=== PATIENT | female | born 1995 | race Caucasian/White ===

== ENCOUNTER 2016-08-05 10:51 | Emergency (ER) | payer MEDICAID ==
--- NOTE | 2016-08-05 11:28 | ED PDOC ---
Arrival/HPI - General Chief Complaint: Flu-like Symptoms Time Seen by Provider: 08/05/16 11:20 Historian: Patient - History of Present Illness Narrative History of Present Illness (Text): 08/05/16 11:25 21 y/o female, no pmh, nkda, c/o nasal congestion/coughing/fever x 2 days with no recent traveling. Nasal congestion with the coughing, associated with the fever 101F at home, no abdominal pain or pelvic pain, no urinary symptoms, no night sweat, no dizziness, no change in vision, no palpitation, no other medical or psychological complaints. Past Medical History - Provider Review Nursing Documentation Reviewed: Yes - Psychiatric Hx Substance Use: No - Surgical History Hx Appendectomy: Yes - Anesthesia Hx Anesthesia: Yes Hx Anesthesia Reactions: No Hx Malignant Hyperthermia: No Family/Social History - Physician Review Nursing Documentation Reviewed: Yes Family/Social History: Unknown Family HX Smoking Status: Never Smoked Hx Alcohol Use: No Hx Substance Use: No Allergies/Home Meds Allergies/Adverse Reactions: Allergies No Known Allergies Allergy (Verified 08/05/16 11:15) Review of Systems - Review of Systems Constitutional: Fevers. absent: Fatigue ENT: Rhinorrhea, Sinus Congestion. absent: Hearing Changes, Sore Throat Respiratory: Cough, Sputum. absent: SOB, Wheezing Cardiovascular: absent: Chest Pain Gastrointestinal: absent: Abdominal Pain, Nausea, Vomiting Musculoskeletal: absent: Arthralgias, Back Pain, Neck Pain, Joint Swelling, Myalgias Skin: absent: Rash, Pruritis, Skin Lesions Neurological: absent: Headache, Dizziness, Speech Changes Physical Exam Vital Signs Reviewed: Yes Vital Signs Temp Pulse Resp BP Pulse Ox 08/05/16 12:09 100.3 F H 08/05/16 10:52 100.3 F H 118 H 18 113/65 100 Temperature: Afebrile Blood Pressure: Normal Pulse: Tachycardic Respiratory Rate: Normal Appearance: Positive for: Well-Appearing, Non-Toxic, Uncomfortable Pain Distress: None Mental Status: Positive for: Alert and Oriented X 3 - Systems Exam Head: Present: Atraumatic, Normocephalic, Other (+ttp on the rt. maxillary sinus region. ) Pupils: Present: PERRL Extroacular Muscles: Present: EOMI Conjunctiva: Present: Normal Ears: Present: NORMAL TM, Normal Canal. No: Erythema Mouth: Present: Moist Mucous Membranes Pharnyx: No: ERYTHEMA, EXUDATE, TONSILS ENLARGED Nose (External): Present: Atraumatic. No: Abrasion, Contusion, Laceration Nose (Internal): Present: Normal Inspection, No Active Bleeding, Rhinorrhea. No : Purulent Mucous, Septal Deviation, Septal Hematoma, Epistaxis Neck: Present: Normal Range of Motion, Trachea Midline. No: Meningeal Signs, MIDLINE TENDERNESS, Paraspinal Tenderness, Lymphadenopathy Respiratory/Chest: Present: Clear to Auscultation, Good Air Exchange. No: Respiratory Distress, Accessory Muscle Use, Wheezes, Decreased Breath Sounds, Rales, Retracting, Rhonchi, Tachypneic Cardiovascular: Present: Regular Rate and Rhythm, Normal S1, S2. No: Murmurs Abdomen: Present: Normal Bowel Sounds. No: Tenderness, Distention, Peritoneal Signs Back: Present: Normal Inspection. No: CVA Tenderness, Midline Tenderness Upper Extremity: Present: Normal Inspection. No: Cyanosis, Edema Lower Extremity: Present: Normal Inspection. No: Edema Neurological: Present: GCS=15, Speech Normal, Motor Func Grossly Intact, Gait Normal, Memory Normal Skin: Present: Warm, Dry, Normal Color. No: Rashes Psychiatric: Present: Alert, Oriented x 3, Normal Insight, Normal Concentration Medical Decision Making ED Course and Treatment: 08/05/16 11:27 -tylenol and rapid flu -chest x-ray 08/05/16 12:17 -Urine hcg negative -Influenza negative -chest x-ray show possible rt. lower lobe consolidation, will cover with the levaquin which I discussed with the patient about the adverse reaction including the possible achilles tendon rupture with the benefits of this medication explained vs. other medications bacterial coverage, pt. willing to take the risk and wants levaquin. -Discharge home with levaquin, flonase, claritin d24, promethazine dm, motrin, stay hydrated, bed rest, follow up with your own pmd within 2 days, return to the ER for any new or worsening signs or symptoms. - Lab Interpretations Lab Results: Lab Results 08/05/16 11:18: Influenza Typ A,B (EIA) Negative for flu a/b I have reviewed the lab results: Yes Interpretation: Abnormal lab values - RAD Interpretation Radiology Orders: 08/05/16 11:20 CHEST TWO VIEWS (PA/LAT) [RAD] Stat - Medication Orders Current Medication Orders: Discontinued Medications Acetaminophen (Tylenol 325mg Tab) 650 mg PO STAT STA Stop: 08/05/16 11:21 Last Admin: 08/05/16 12:09 Dose: 650 MG MAR Pain/Vitals Document 08/05/16 12:09 EQ (Rec: 08/05/16 12:09 EQ [id number]) Vitals Temperature (97.6 F-99.6 F) 100.3 F Temperature Source Oral Ibuprofen (Motrin Tab) 600 mg PO STAT STA Stop: 08/05/16 11:29 Last Admin: 08/05/16 12:09 Dose: 600 MG - PA / DETECTIVE CHIEF / Resident Statement / has reviewed & agrees with the documentation as recorded. Disposition/Present on Arrival - Present on Arrival Any Indicators Present on Arrival: No History of DVT/PE: No History of Uncontrolled Diabetes: No Urinary Catheter: No History of Decub. Ulcer: No History Surgical Site Infection Following: None - Disposition Have Diagnosis and Disposition been Completed?: Yes Diagnosis: Sinusitis, Pneumonia Disposition: HOME/ ROUTINE Disposition Time: 11:28 Patient Plan: Discharge Condition: GOOD Additional Instructions: Discharge home with levaquin, flonase, claritin d24, promethazine dm, motrin, stay hydrated, bed rest, follow up with your own pmd within 2 days, return to the ER for any new or worsening signs or symptoms. Prescriptions: Loratadine/Pseudoephedrine [Claritin-D 24 Hour Tablet] 1 each PO DAILY #7 tab.er.24h Fluticasone Nasal [Flonase] 1 spr NS DAILY #1 bot Promethazine DM [Phenergan DM Oral Syrup] 5 ml PO QID PRN #150 ml PRN Reason: Other Acetaminophen [Tylenol 325mg tab] 2 tab PO QID PRN #30 tab PRN Reason: Other Referrals: Paresh Guzman DO [Staff Provider] - Follow up with primary [facility] at [facility] [place] [Outside] - Follow up with primary Forms: WORK NOTE
[2016-08-05 12:28] VITALS: BP 126/72; PULSE 96; RESP 17; TEMP 99.8; O2SAT 99
--- NOTE | 2016-08-05 12:40 | RAD ---
HISTORY: cough/fever COMPARISON: None available TECHNIQUE: Chest PA and lateral FINDINGS: LUNGS: Minimal interstitial prominence and peribronchiolar cuffing centrally. No focal consolidation. Please note that chest x-ray has limited sensitivity for the detection of pulmonary masses. PLEURA: No significant pleural effusion identified. No definite pneumothorax . CARDIOVASCULAR: The cardiomediastinal silhouette appears within normal limits of size. OSSEOUS STRUCTURES: No acute osseous abnormality identified. VISUALIZED UPPER ABDOMEN: Unremarkable. OTHER FINDINGS: None. IMPRESSION: Findings consistent with mild reactive or inflammatory airway disease.
== END 2016-08-05 12:50 | disposition home or self-care (01) ==
LOC: ED 10:51
DX: J18.9 Pneumonia, unspecified organism (principal); J32.9 Chronic sinusitis, unspecified

== ENCOUNTER 2017-01-01 19:01 | Emergency (ER) | payer MEDICAID ==
[2017-01-01 19:15] VITALS: BMI 28.8
[2017-01-01 19:17] VITALS: RESP 18; TEMP 98.5
[2017-01-01] MEDS ORDERED: Sodium Chloride 0.9% 1,000 ML IV STA (19:29)
--- NOTE | 2017-01-01 19:33 | ED PDOC ---
Arrival/HPI - General Chief Complaint: ENT Problem Time Seen by Provider: 01/01/17 19:22 Historian: Patient - History of Present Illness Narrative History of Present Illness (Text): 01/01/17 19:30 21 y/o female, no significant pmh, nkda, c/o dizzy spell with ear ringing x 2 days with no fall or trauma. Pt. stated that she has been having rt. ear ringing sensation on and off x 2 days, occasionally feeling the entire room is spinning, no nausea or vomiting, no change in vision, no fever or chills, no night sweat, no rash, no numbness or tingling, no other medical or psychological complaints. Past Medical History - Provider Review Nursing Documentation Reviewed: Yes - Infectious Disease Hx of Infectious Diseases: None - Psychiatric Hx Substance Use: No - Surgical History Hx Appendectomy: Yes - Anesthesia Hx Anesthesia: Yes Hx Anesthesia Reactions: No Hx Malignant Hyperthermia: No Family/Social History - Physician Review Nursing Documentation Reviewed: Yes Family/Social History: Unknown Family HX Smoking Status: Never Smoked Hx Alcohol Use: No Hx Substance Use: No Allergies/Home Meds Allergies/Adverse Reactions: Allergies No Known Allergies Allergy (Verified 08/05/16 11:15) Review of Systems - Review of Systems Constitutional: absent: Fatigue, Fevers Eyes: absent: Vision Changes ENT: Tinnitus. absent: Hearing Changes, Sore Throat, Rhinorrhea, Epistaxis Respiratory: absent: SOB, Cough Gastrointestinal: absent: Abdominal Pain, Nausea, Vomiting Skin: absent: Rash, Pruritis Neurological: Dizziness. absent: Headache, Focal Weakness, Gait Changes, Speech Changes, Facial Droop Physical Exam Vital Signs Reviewed: Yes Vital Signs Temp Pulse Resp BP Pulse Ox 01/01/17 19:17 98.5 F 67 18 109/71 100 Temperature: Afebrile Blood Pressure: Normal Pulse: Regular Respiratory Rate: Normal Appearance: Positive for: Well-Appearing, Non-Toxic, Comfortable Pain Distress: None Mental Status: Positive for: Alert and Oriented X 3 - Systems Exam Head: Present: Atraumatic, Normocephalic Pupils: Present: PERRL Extroacular Muscles: Present: EOMI Conjunctiva: Present: Normal Ears: Present: NORMAL TM, Normal Canal. No: Erythema, TM Bulging, Fluid, TM Perf Mouth: Present: Moist Mucous Membranes Pharnyx: No: ERYTHEMA, EXUDATE, TONSILS ENLARGED, Uvular Deviation, Muffled/ Hoarse Voice Nose (Internal): Present: Normal Inspection, No Active Bleeding. No: Rhinorrhea Neck: Present: Normal Range of Motion Respiratory/Chest: Present: Clear to Auscultation, Good Air Exchange. No: Respiratory Distress, Accessory Muscle Use Cardiovascular: Present: Regular Rate and Rhythm, Normal S1, S2. No: Murmurs Abdomen: Present: Normal Bowel Sounds. No: Tenderness, Distention, Peritoneal Signs, Rebound, Guarding Back: Present: Normal Inspection Upper Extremity: Present: Normal Inspection. No: Cyanosis, Edema Lower Extremity: Present: Normal Inspection. No: Edema Neurological: Present: GCS=15, CN II-XII Intact, Speech Normal, Motor Func Grossly Intact, Gait Normal, Memory Normal, Other (negative HINTS, +dixhall pike test, normal finger to nose test, normal heel to fletcher test. ) Skin: Present: Warm, Dry, Normal Color. No: Rashes Psychiatric: Present: Alert, Oriented x 3, Normal Insight, Normal Concentration Medical Decision Making ED Course and Treatment: 01/01/17 19:33 -labs/ua -IVF/meclizine -no emergent indication of the CT head -Observe and reassess 01/01/17 20:49 -Urine hcg negative. -Labs are non-significant -UA show no UTI -Pt. feels completely relief, asymptomatic, no focal neurological deficits, will discharge home. -Discharge home with meclizine, stay hydrated, bed rest, follow up with your own pmd and ENT within 2 days, return to the ER for any new or worsening signs or symptoms. - Lab Interpretations Lab Results: 01/01/17 20:00 01/01/17 20:00 Lab Results 01/01/17 20:00: WBC 8.0, RBC 4.11, Hgb 12.2, Hct 36.1, MCV 87.8, MCH 29.7, MCHC 33.8, RDW 12.3, Plt Count 286, MPV 9.6, Gran % 59.6, Lymph % (Auto) 34.3, [place] % (Auto) 3.9, Eos % (Auto) 2.1, Baso % (Auto) 0.1, Gran # 4.76, Lymph # 2.7, [place] # 0.3, Eos # 0.2, Baso # 0.01 01/01/17 20:00: Sodium 139, Potassium 3.7, Chloride 101, Carbon Dioxide 27, Anion Gap 15, BUN 10, Creatinine 0.6, Est GFR ( Amer) > 60, Est GFR (Non- Af Amer) > 60, Random Glucose 94, Calcium 9.1, Total Bilirubin 0.4, AST 30, ALT 35, Alkaline Phosphatase 48, Total Protein 7.4, Albumin 4.4, Globulin 3.0, Albumin/Globulin Ratio 1.5 01/01/17 19:40: Urine Color Yellow, Urine Appearance Clear, Urine pH 6.0, Ur Specific [place] 1.020, Urine Protein Negative, Urine Glucose (UA) Negative, Urine Ketones Negative, Urine Blood Small H, Urine Nitrate Negative, Urine Bilirubin Negative, Urine Urobilinogen 0.2, Ur Leukocyte Esterase Negative, Urine RBC 0 - 2, Urine WBC 1 - 3, Ur Epithelial Cells 1 - 3, Urine Bacteria Few I have reviewed the lab results: Yes Interpretation: No clinic. lab abnormalty - Medication Orders Current Medication Orders: Discontinued Medications Sodium Chloride (Sodium Chloride 0.9%) 1,000 mls @ 999 mls/hr IV .Q1H1M STA Stop: 01/01/17 20:29 Last Admin: 01/01/17 19:56 Dose: 999 mls/hr Meclizine HCl (Antivert) 50 mg PO STAT STA Stop: 01/01/17 20:25 Last Admin: 01/01/17 20:32 Dose: 50 mg - PA / WIG MAKER / Resident Statement MD/DO has reviewed & agrees with the documentation as recorded. Disposition/Present on Arrival - Present on Arrival Any Indicators Present on Arrival: No History of DVT/PE: No History of Uncontrolled Diabetes: No Urinary Catheter: No History of Decub. Ulcer: No History Surgical Site Infection Following: None - Disposition Have Diagnosis and Disposition been Completed?: Yes Diagnosis: Vertigo, Meniere disease Disposition: HOME/ ROUTINE Disposition Time: 20:51 Patient Plan: Discharge Condition: IMPROVED Additional Instructions: -Discharge home with meclizine, stay hydrated, bed rest, follow up with your own pmd and ENT within 2 days, return to the ER for any new or worsening signs or symptoms. Prescriptions: Meclizine [Antivert] 25 mg PO Q6 PRN #30 tab PRN Reason: Other Referrals: PCP,NO [Primary Care Provider] - Follow up with primary [facility] [place] - Follow up with primary Jermaine Bruno DO [Staff Provider] - Follow up with primary Christopher Ding MD [Staff Provider] - Follow up with primary Forms: [employer] (Lao), WORK NOTE
[2017-01-01 19:54] LABS: URINE BILIRUBIN NEGATIVE (NEGATIVE); URINE BLOOD SMALL (NEGATIVE); URINE GLUCOSE (UA) NEGATIVE (NEGATIVE); URINE KETONE NEGATIVE (NEGATIVE); URINE LEUKOCYTE ESTERASE NEGATIVE Leu/uL (NEGATIVE); URINE PROTEIN NEGATIVE mg/dL (<30 mg/dL); URINE UROBILINOGEN 0.2 E.U./dL (<1 E.U./dL)
[2017-01-01 19:57] LABS: URINE APPEARANCE CLEAR (CLEAR); URINE COLOR YELLOW (YELLOW)
[2017-01-01 20:05] LABS: BASO # 0.01 K/mm3 (0.0-2.0); BASO % 0.1 % (0.0-3.0); EOS # 0.2 (0.0-0.7); EOS % 2.1 % (1.5-5.0); GRAN # 4.76 (1.4-6.5); GRAN % 59.6 % (50.0-68.0); HEMATOCRIT 36.1 % (36.0-48.0); LYMPH # 2.7 (1.2-3.4); LYMPH % 34.3 % (22.0-35.0); MEAN CELL VOLUME 87.8 fl (80.0-105.0); MEAN CORPUSCULAR HEMOGLOBIN 29.7 pg (25.0-35.0); MEAN CORPUSCULAR HGB CONC 33.8 g/dl (31.0-37.0); MEAN PLATELET VOLUME 9.6 fl (7.0-11.0); MONO # 0.3 (0.1-0.6); MONO % 3.9 % (1.0-6.0); RED CELL DISTRIBUTION WIDTH 12.3 % (11.5-14.5)
[2017-01-01 20:08] LABS: URINE BACTERIA FEW (NEG); URINE RBC 0 - 2 /hpf (0-2)
[2017-01-01 20:22] LABS: ALB/GLOB RATIO 1.5 (1.1-1.8); ALKALINE PHOSPHATASE 48 U/L (38-126); ALT/SGPT 35 U/L (7-56); AST/SGOT 30 U/L (14-36); BILIRUBIN,TOTAL 0.4 mg/dL (0.2-1.3); BLOOD UREA NITROGEN 10 mg/dL (7-21); CALCIUM 9.1 mg/dL (8.4-10.5); CARBON DIOXIDE 27 mmol/L (21-33); CHLORIDE 101 mmol/L (98-107); GFR AFRICAN-AMERICAN > 60; GLUCOSE,RANDOM 94 mg/dL (70-110); POTASSIUM 3.7 mmol/L (3.6-5.0); SODIUM 139 mmol/L (132-148); TOTAL PROTEIN 7.4 g/dL (5.8-8.3)
[2017-01-01 21:17] VITALS: BP 112/62; PULSE 64; O2SAT 99
== END 2017-01-01 21:15 | disposition home or self-care (01) ==
LOC: ED 19:01
DX: R42 Dizziness and giddiness (principal); H81.01 Meniere's disease, right ear
CPT/HCPCS: 80053; 81001; 85025; 96360; 99283; J7040

== ENCOUNTER 2017-03-23 11:21 | Emergency (ER) | payer MEDICAID ==
[2017-03-23 11:34] VITALS: RESP 17; TEMP 98.4; O2SAT 100
--- NOTE | 2017-03-23 11:47 | ED PDOC ---
Arrival/HPI - General Chief Complaint: Lower Extremity Problem/Injury Time Seen by Provider: 03/23/17 11:32 Historian: Patient - History of Present Illness Narrative History of Present Illness (Text): 03/23/17 11:40 A 21 year old female, whose denies any significant past medical history, presents to the emergency department for bilateral leg cramping, which began earlier today. The patient states the pain is moderate and occasionally her feet begin to tingle. The patient denies any fever, cough, chest pain, abdominal pain, or any other complaints at this time. 03/23/17 14:12 Time/Duration: 4-6 hours Symptom Onset: Sudden Symptom Course: Unchanged Activities at Onset: Rest, Light Context: Home Past Medical History - Provider Review Nursing Documentation Reviewed: Yes - Infectious Disease Hx of Infectious Diseases: None - Psychiatric Hx Substance Use: No - Surgical History Hx Appendectomy: Yes - Anesthesia Hx Anesthesia: Yes Hx Anesthesia Reactions: No Hx Malignant Hyperthermia: No Family/Social History - Physician Review Nursing Documentation Reviewed: Yes Family/Social History: No Known Family HX Smoking Status: Never Smoked Hx Alcohol Use: No Hx Substance Use: No Allergies/Home Meds Allergies/Adverse Reactions: Allergies No Known Allergies Allergy (Verified 03/23/17 11:35) Review of Systems - Physician Review All systems were reviewed & negative as marked: Yes - Review of Systems Constitutional: absent: Fevers Respiratory: absent: Cough Cardiovascular: absent: Chest Pain Gastrointestinal: absent: Abdominal Pain Musculoskeletal: Other (bilateral leg cramping ) Physical Exam Vital Signs Reviewed: Yes Vital Signs Temp Pulse Resp BP Pulse Ox 03/23/17 13:09 98.4 F 79 17 107/59 L 100 03/23/17 11:37 98.4 F 99 H 17 134/87 100 03/23/17 11:32 98.4 F 99 H 17 134/87 100 Temperature: Afebrile Blood Pressure: Normal Pulse: Tachycardic Respiratory Rate: Normal Appearance: Positive for: Well-Appearing, Non-Toxic, Comfortable Pain Distress: None Mental Status: Positive for: Alert and Oriented X 3 - Systems Exam Head: Present: Atraumatic, Normocephalic Pupils: Present: PERRL Extroacular Muscles: Present: EOMI Conjunctiva: Present: Normal Mouth: Present: Moist Mucous Membranes Neck: Present: Normal Range of Motion Respiratory/Chest: Present: Clear to Auscultation, Good Air Exchange. No: Respiratory Distress, Accessory Muscle Use Cardiovascular: Present: Regular Rate and Rhythm, Normal S1, S2. No: Murmurs Abdomen: Present: Normal Bowel Sounds. No: Tenderness, Distention, Peritoneal Signs Back: Present: Normal Inspection Upper Extremity: Present: Normal Inspection. No: Cyanosis, Edema Lower Extremity: Present: Normal Inspection. No: Edema Neurological: Present: GCS=15, CN II-XII Intact, Speech Normal Skin: Present: Warm, Dry, Normal Color. No: Rashes Psychiatric: Present: Alert, Oriented x 3, Normal Insight, Normal Concentration Medical Decision Making ED Course and Treatment: 03/23/17 11:46 Impression: A 21 year old female with bilateral leg cramps. Differential Diagnosis included but are not limited to: ro dvt, metabolic, rhado Plan: -- Duplex lower extremity vein bilat. Ultrasound -- Labs -- Tylenol -- Urinalysis -- Reassess and disposition Progress Notes: 03/23/17 14:11 dvt study neg. cpk neg. pt well appearing, electrolytes normal. advise outpt f/ u and return precautions - Lab Interpretations Lab Results: 03/23/17 12:00 03/23/17 12:00 Lab Results 03/23/17 12:35: Total Creatine Kinase 113 03/23/17 12:00: Urine Color Yellow, Urine Appearance Clear, Urine pH 6.0, Ur Specific [place] 1.025, Urine Protein Trace H, Urine Glucose (UA) Negative, Urine Ketones Negative, Urine Blood Large H, Urine Nitrate Negative, Urine Bilirubin Negative, Urine Urobilinogen 0.2, Ur Leukocyte Esterase Negative, Urine RBC 20 - 25, Urine WBC 1 - 3, Ur Epithelial Cells Many, Amorphous Sediment Few, Urine Bacteria Many, Urine HCG, Qual Negative 03/23/17 12:00: Sodium 140, Potassium 3.7, Chloride 104, Carbon Dioxide 26, Anion Gap 14, BUN 12, Creatinine 0.9, Est GFR ( Amer) > 60, Est GFR (Non- Af Amer) > 60, Random Glucose 81, Calcium 9.3, Total Bilirubin 0.5, AST 25, ALT 24, Alkaline Phosphatase 40, Total Protein 7.9, Albumin 4.5, Globulin 3.3, Albumin/Globulin Ratio 1.4 03/23/17 12:00: PT 12.4, INR 1.12 H, APTT 34.5 03/23/17 12:00: WBC 7.1, RBC 4.20, Hgb 12.3, Hct 37.0, MCV 88.1, MCH 29.3, MCHC 33.2, RDW 12.4, Plt Count 283, MPV 9.7, Gran % 57.6, Lymph % (Auto) 33.2, [place] % (Auto) 6.0, Eos % (Auto) 3.1, Baso % (Auto) 0.1, Gran # 4.06, Lymph # 2.3, [place] # 0.4, Eos # 0.2, Baso # 0.01 - RAD Interpretation Radiology Orders: 03/23/17 11:39 DUPLEX LOWER EXTRM VEIN BILAT [US] Stat - Medication Orders Current Medication Orders: Discontinued Medications Acetaminophen (Tylenol 325mg Tab) 975 mg PO STAT STA Stop: 03/23/17 11:40 Last Admin: 03/23/17 11:53 Dose: 975 mg MAR Pain/Vitals Document 03/23/17 11:53 OCS (Rec: 03/23/17 11:54 OCS [id number]) Pain Reassessment Is This A Pain ReAssessment? No Sleep Is patient sleeping during reassessment? No Presence of Pain Presence of Pain Yes Pain Scale Used Pain Scale Used Numeric Location Left, Right or Bilateral Bilateral Upper or Lower Lower Pain Location Body Site legs Description Constant Intensity 9 Scale Used Numeric Aggravating Factors ADL's - Scribe Statement The provider has reviewed the documentation as recorded by the Ladarius Vann Provider Scribe Attestation: All medical record entries made by the Ladarius were at my direction and personally dictated by me. I have reviewed the chart and agree that the record accurately reflects my personal performance of the history, physical exam, medical decision making, and the department course for this patient. I have also personally directed, reviewed, and agree with the discharge instructions and disposition. Disposition/Present on Arrival - Present on Arrival Any Indicators Present on Arrival: No History of DVT/PE: No History of Uncontrolled Diabetes: No Urinary Catheter: No History of Decub. Ulcer: No History Surgical Site Infection Following: None - Disposition Have Diagnosis and Disposition been Completed?: Yes Diagnosis: Leg cramp Disposition: HOME/ ROUTINE Disposition Time: 01:00 Condition: STABLE Discharge Instructions (ExitCare): Leg Cramps (ED) Additional Instructions: return to er with worsening symptoms or concerns, please follow up with your doctor. Prescriptions: Naproxen [Naprosyn] 500 mg PO BID PRN #14 tablet PRN Reason: Pain, Mild (1-3) Referrals: [facility] [Outside] - Follow up with primary [facility] [place] - Follow up with primary Forms: [employer] (Spanish)
[2017-03-23 12:11] LABS: BASO # 0.01 K/mm3 (0.0-2.0); BASO % 0.1 % (0.0-3.0); EOS # 0.2 (0.0-0.7); EOS % 3.1 % (1.5-5.0); GRAN # 4.06 (1.4-6.5); GRAN % 57.6 % (50.0-68.0); LYMPH # 2.3 (1.2-3.4); LYMPH % 33.2 % (22.0-35.0); MEAN CELL VOLUME 88.1 fl (80.0-105.0); MEAN CORPUSCULAR HEMOGLOBIN 29.3 pg (25.0-35.0); MEAN CORPUSCULAR HGB CONC 33.2 g/dl (31.0-37.0); MEAN PLATELET VOLUME 9.7 fl (7.0-11.0); MONO # 0.4 (0.1-0.6); RED CELL DISTRIBUTION WIDTH 12.4 % (11.5-14.5); WHITE BLOOD COUNT 7.1 10^3/ul (4.5-11.0)
[2017-03-23 12:14] LABS: URINE BILIRUBIN NEGATIVE (NEGATIVE); URINE BLOOD LARGE (NEGATIVE); URINE GLUCOSE (UA) NEGATIVE (NEGATIVE); URINE KETONE NEGATIVE (NEGATIVE); URINE LEUKOCYTE ESTERASE NEGATIVE Leu/uL (NEGATIVE); URINE PROTEIN TRACE mg/dL (<30 mg/dL); URINE UROBILINOGEN 0.2 E.U./dL (<1 E.U./dL)
[2017-03-23 12:17] LABS: URINE APPEARANCE CLEAR (CLEAR); URINE COLOR YELLOW (YELLOW)
[2017-03-23 12:19] LABS: ALB/GLOB RATIO 1.4 (1.1-1.8); ALKALINE PHOSPHATASE 40 U/L (38-126); ALT/SGPT 24 U/L (7-56); AST/SGOT 25 U/L (14-36); BILIRUBIN,TOTAL 0.5 mg/dL (0.2-1.3); BLOOD UREA NITROGEN 12 mg/dL (7-21); CALCIUM 9.3 mg/dL (8.4-10.5); CARBON DIOXIDE 26 mmol/L (21-33); CHLORIDE 104 mmol/L (98-107); GFR AFRICAN-AMERICAN > 60; GLUCOSE,RANDOM 81 mg/dL (70-110); POTASSIUM 3.7 mmol/L (3.6-5.0); SODIUM 140 mmol/L (132-148); TOTAL PROTEIN 7.9 g/dL (5.8-8.3)
[2017-03-23 12:24] LABS: INR 1.12 (0.93-1.08); PARTIAL THROMBOPLASTIN TIME 34.5 Seconds (25.1-36.5)
[2017-03-23 12:56] LABS: URINE AMORPHOUS SEDIMENT FEW; URINE BACTERIA MANY (NEG); URINE EPITHELIAL CELLS MANY /hpf (0-5); URINE RBC 20 - 25 /hpf (0-2)
[2017-03-23 13:10] VITALS: BP 107/59; PULSE 79
[2017-03-23 13:11] VITALS: BMI 25.7
--- NOTE | 2017-03-24 14:08 | US ---
HISTORY: Leg pain and swelling. Evaluate for DVT PHYSICIAN(S): Tio Wolf MD. TECHNIQUE: Duplex sonography and color-flow Doppler with graded compression were used to evaluate the deep venous systems of both lower extremities. FINDINGS: The visualized deep venous systems of both lower extremities are sonographically normal and compressible. Normal wave forms and augmentation are seen. There is no sonographic evidence for deep venous thrombosis in the visualized segments of both lower extremities. IMPRESSION: No sonographic evidence for deep venous thrombosis in the visualized segments of both lower extremities.
== END 2017-03-23 13:13 | disposition home or self-care (01) ==
LOC: ED 11:21
DX: R25.2 Cramp and spasm (principal)

== ENCOUNTER 2017-06-15 11:23 | Emergency (ER) | payer MEDICAID ==
[2017-06-15 11:23] VITALS: BMI 25.7
[2017-06-15 11:40] VITALS: BP 92/65; PULSE 72; RESP 16; TEMP 99.2; O2SAT 98
--- NOTE | 2017-06-15 12:36 | ED PDOC ---
Arrival/HPI - General Chief Complaint: Dental Pain Time Seen by Provider: 06/15/17 11:40 Historian: Patient - History of Present Illness Narrative History of Present Illness (Text): 06/15/17 12:20 pt p/w + 3 days onset of lower jaw/tooth ache (left sided, and today is progressing to right); pt states pain is severe, at home advil/motrin are not helping; pt states + tactile fever, no chills/sweats, no cp/sob/palpitations, no drooling/stridor, no voice changes, no abd pain, no n/v, no numbness/tingling , no urinary/bowel changes, no fall/trauma/sick contact, no travelers' aid worker denied other complaints pt is here for further eval pt was not able to see her dentists until tomorrow Time/Duration: < week (3 days) Symptom Onset: Sudden Symptom Course: Worsening Quality: Cramping, Throbbing Severity Level: 9, Severe Activities at Onset: Rest Context: Home Past Medical History - Provider Review Nursing Documentation Reviewed: Yes - Travel History Have you recently traveled outside [place] w/in the past 3 mons?: No - Past History Past History: No Previous - Infectious Disease Hx of Infectious Diseases: None - Reproductive Menopause: No - Cardiac Hx Heart Murmur: Yes - Psychiatric Hx Substance Use: No - Surgical History Hx Appendectomy: Yes - Anesthesia Hx Anesthesia: Yes Hx Anesthesia Reactions: No Hx Malignant Hyperthermia: No Family/Social History - Physician Review Nursing Documentation Reviewed: Yes Family/Social History: No Known Family HX Smoking Status: Never Smoked Hx Alcohol Use: No Hx Substance Use: No Hx Substance Use Treatment: No Allergies/Home Meds Allergies/Adverse Reactions: Allergies No Known Allergies Allergy (Verified 03/23/17 11:35) Review of Systems - Review of Systems Constitutional: Normal Eyes: Normal ENT: Other (initially left lower dental pain, today also with right lower dental pain) Respiratory: Normal Cardiovascular: Normal Gastrointestinal: Normal Genitourinary Female: Normal Musculoskeletal: Normal Skin: Normal Neurological: Normal Endocrine: Normal Hemo/Lymphatic: Normal Psychiatric: Normal Physical Exam Vital Signs Reviewed: Yes Vital Signs Temp Pulse Resp BP Pulse Ox 06/15/17 11:37 99.2 F 72 16 92/65 L 98 Temperature: Afebrile Blood Pressure: Normal Pulse: Regular Respiratory Rate: Normal Appearance: Positive for: Well-Appearing, Non-Toxic, Uncomfortable, Other ( uncomfortable, mild distress due to pain, alert/awake, GCS = 15, oriented x 3, cooperative) Pain Distress: Mild Mental Status: Positive for: Alert and Oriented X 3 - Systems Exam Head: Present: Atraumatic, Normocephalic Pupils: Present: PERRL, Other (visual field intact b/l, no nystagmus, no photophobia, sclera anicteric) Extroacular Muscles: Present: EOMI Conjunctiva: Present: Normal Ears: Present: Normal Mouth: Present: Moist Mucous Membranes, Normal Lips, Normal Tounge, Other ( intact dentitions; noted lower left/right molar teeth are areas of pain/ tenderness on exam, left >> right; dental #17/#32; dental #17 appears to be protruding thru the gum tissues causing patient pain; no fluctuance/pus/ discharge/bleeding expressible; slightly raw/reddish gum is noted; dental #32 abnl growth of the teetn, faintly tender, no fluctuance/discoloration/pus/ bleeding is noted/or expressed). No: Drooling Pharnyx: Present: Normal Nose (External): Present: Atraumatic Nose (Internal): Present: Normal Inspection Neck: Present: Normal Range of Motion, Trachea Midline, Other (intact ROM, no midline tenderness, no step off). No: MIDLINE TENDERNESS Respiratory/Chest: Present: Clear to Auscultation, Good Air Exchange. No: Respiratory Distress, Accessory Muscle Use Cardiovascular: Present: Regular Rate and Rhythm, Normal S1, S2. No: Murmurs Abdomen: Present: Normal Bowel Sounds, Other (well nourished female, no focal tenderness, no masses/rebound/guarding/rigidity) Back: Present: Normal Inspection. No: CVA Tenderness, Midline Tenderness Upper Extremity: Present: Normal Inspection, Normal ROM, NORMAL PULSES, Neurovascularly Intact, Capillary Refill < 2s Lower Extremity: Present: Normal Inspection, NORMAL PULSES, Normal ROM, Neurovascularly Intact, Capillary Refill < 2 s Neurological: Present: GCS=15, Speech Normal Skin: Present: Warm, Normal Color, Other (cap refill < 1sec, no ulcerations, no petechiae, no rashes). No: Rashes Psychiatric: Present: Alert, Oriented x 3 Medical Decision Making ED Course and Treatment: 06/15/17 12:20 Impression: dental pain i have consider all the differential diagnosis regarding pt's chief medical complaints/clinical findings, including but are not limited to: dental pain A/P: dental pain - pain control - observe - supportive care 06/15/17 1235 pt is doing well pt is not in any distress no drooling/stridor/voice changes pt has an upcoming dental appointment tomorrow with her dentists pt is made aware of her medical results pt is encouraged soft food diet pt is encouraged fluids pt will f/u as directed pt will be discharged home Re-evaluation Time: 12:32 Reassessment Condition: Improving,but remains with symptoms - Medication Orders Current Medication Orders: Discontinued Medications Ibuprofen (Motrin Tab) 400 mg PO STAT STA Stop: 06/15/17 12:32 Last Admin: 06/15/17 12:46 Dose: 400 mg MAR Pain/Vitals Document 06/15/17 12:46 QUYEN (Rec: 06/15/17 12:47 QUYEN [id number]) Pain Reassessment Is This A Pain ReAssessment? Yes Presence of Pain Presence of Pain Yes Pain Scale Used Pain Scale Used Numeric Location Left, Right or Bilateral Left Pain Location Body Site molar region Intensity 8 Scale Used Numeric Lidocaine HCl (Lidocaine 2% Viscous) 15 ml MM STAT STA Stop: 06/15/17 12:31 Last Admin: 06/15/17 12:43 Dose: 15 ml Disposition/Present on Arrival - Present on Arrival Any Indicators Present on Arrival: No History of DVT/PE: No History of Uncontrolled Diabetes: No Urinary Catheter: No History of Decub. Ulcer: No History Surgical Site Infection Following: None - Disposition Have Diagnosis and Disposition been Completed?: Yes Diagnosis: Pain, dental Disposition: HOME/ ROUTINE Disposition Time: 12:33 Patient Plan: Discharge Condition: STABLE Discharge Instructions (ExitCare): Dental Pain Print Language: EMIRATI Additional Instructions: Make sure to see your doctor in 1-2 days Make sure to see your dentists tomorrow/as scheduled DRINK PLENTY OF FLUIDS soft food is encouraged ICE to area of pain take your medications as prescribed RETURN TO ED IF worse pain, cant breath, persistent vomiting, high fever >101- 102 for hours, cant swallow, persistent drooling, altered behavior, unable to urinate, heavy/persistent bleeding, passing out, chest pain, or other medical emergencies Prescriptions: Lidocaine 2% Viscous 10 ml MM TID PRN #100 ml PRN Reason: Pain, Mild (1-3) traMADol [Ultram] 50 mg PO TID PRN #15 tab PRN Reason: Pain, Moderate (4-7) [facility] Care [facility] - Follow up with primary Forms: [facility] (Welsh), WORK NOTE
== END 2017-06-15 12:50 | disposition home or self-care (01) ==
LOC: ED 11:23
DX: K08.89 Other specified disorders of teeth and supporting structures (principal)

== ENCOUNTER 2018-05-06 10:20 | Emergency (ER) | payer MEDICAID ==
[2018-05-06 10:34] VITALS: RESP 16; BMI 32.1
--- NOTE | 2018-05-06 11:04 | ED PDOC ---
Arrival/HPI - General Chief Complaint: Cough, Cold, Congestion Time Seen by Provider: 05/06/18 10:27 Historian: Patient - History of Present Illness Narrative History of Present Illness (Text): 05/06/18 12:22 23yo female with no pmhx who present with complaint of sore throat, body aches, yellow productive cough and chest pain with cough x3days. She denies fever, chills, nausea, vomiting, abdominal pain, travel. States her son was sick last week with same complaint. Past Medical History - Provider Review Nursing Documentation Reviewed: Yes - Past History Past History: No Previous - Infectious Disease Hx of Infectious Diseases: None - Cardiac Hx Heart Murmur: Yes - Psychiatric Hx Substance Use: No - Surgical History Hx Appendectomy: Yes - Anesthesia Hx Anesthesia: Yes Hx Anesthesia Reactions: No Hx Malignant Hyperthermia: No Family/Social History - Physician Review Nursing Documentation Reviewed: Yes Family/Social History: Unknown Family HX Smoking Status: Never Smoked Hx Alcohol Use: No Hx Substance Use: No Hx Substance Use Treatment: No Allergies/Home Meds Allergies/Adverse Reactions: Allergies No Known Allergies Allergy (Verified 03/23/17 11:35) Review of Systems - Patients Enrolled in Dispens[employer] Initiative [X]: A conversation was conducted with the primary medical doctor. - Physician Review All systems were reviewed & negative as marked: Yes - Review of Systems Constitutional: Normal Eyes: Normal ENT: Sore Throat Respiratory: Cough, Sputum Cardiovascular: Chest Pain. absent: Palpitations, Edema, Calf Pain Gastrointestinal: Normal Genitourinary Female: Normal Musculoskeletal: Normal Skin: Normal Neurological: Normal Endocrine: Normal Hemo/Lymphatic: Normal Psychiatric: Normal Physical Exam Vital Signs Reviewed: Yes Vital Signs Temp Pulse Resp BP Pulse Ox 05/06/18 10:20 99.3 F 91 H 16 111/73 97 Temperature: Afebrile Blood Pressure: Normal Pulse: Regular Respiratory Rate: Normal Appearance: Positive for: Well-Appearing, Non-Toxic, Comfortable Pain Distress: None Mental Status: Positive for: Alert and Oriented X 3 - Systems Exam Head: Present: Atraumatic, Normocephalic Pupils: Present: PERRL Extroacular Muscles: Present: EOMI Conjunctiva: Present: Normal Mouth: Present: Moist Mucous Membranes Pharnyx: Present: Normal. No: ERYTHEMA, EXUDATE, TONSILS ENLARGED, Peritonsilar Swelling, Uvular Deviation, Muffled/Hoarse Voice, Strider Neck: Present: Normal Range of Motion Respiratory/Chest: Present: Clear to Auscultation, Good Air Exchange. No: Respiratory Distress, Accessory Muscle Use, Wheezes, Decreased Breath Sounds, Rales, Retracting, Rhonchi, Tachypneic Cardiovascular: Present: Regular Rate and Rhythm, Normal S1, S2. No: Murmurs Abdomen: No: Tenderness, Distention, Peritoneal Signs Back: Present: Normal Inspection Upper Extremity: Present: Normal Inspection. No: Cyanosis, Edema Lower Extremity: Present: Normal Inspection. No: Edema Neurological: Present: GCS=15, CN II-XII Intact, Speech Normal Skin: Present: Warm, Dry, Normal Color. No: Rashes Psychiatric: Present: Alert, Oriented x 3, Normal Insight, Normal Concentration Medical Decision Making ED Course and Treatment: 05/06/18 19:17 PT present to ED for stated history. Chest xray Rapid flu/strep chest xray IMPRESSION: No active disease. Rapid flu/strep - both negative Result was DW the pt. Her Centor score was zero. she was treated symptomatically for viral URI - RAD Interpretation Radiology Orders: 05/06/18 10:36 CHEST TWO VIEWS (PA/LAT) [RAD] Stat Disposition/Present on Arrival - Present on Arrival Any Indicators Present on Arrival: No History of DVT/PE: No History of Uncontrolled Diabetes: No Urinary Catheter: No History of Decub. Ulcer: No History Surgical Site Infection Following: None - Disposition Have Diagnosis and Disposition been Completed?: Yes Diagnosis: Viral upper respiratory tract infection with cough Disposition: HOME/ ROUTINE Disposition Time: 12:25 Patient Plan: Discharge Condition: STABLE Discharge Instructions (ExitCare): Viral Upper Respiratory Infection, Adult (DC) Additional Instructions: Follow up with your Doctor Drink plenty of fluid and rest Return to ED for any new or worsening symptoms Prescriptions: RX: Albuterol HFA [Ventolin HFA 90 mcg/actuation (8 g)] 2 puff IH [id number] #1 puff Benzocaine/Menthol [Sore Throat Lozenge] 1 each MM BID #20 lozenge RX: Promethazine [Phenergan Syrup] 6.25 mg PO Q6 #100 ml Referrals: Germania Camarena MD [Medical Doctor] - Follow up with primary Forms: [facility] (Lithuanian), WORK NOTE
[2018-05-06] MEDS ORDERED: guaiFENesin 200 mg/10 ml Syrup UD PO STA (12:22)
[2018-05-06 13:59] VITALS: BP 106/63; PULSE 98; TEMP 98.9; O2SAT 98
--- NOTE | 2018-05-06 16:11 | RAD ---
Date of service: 05/06/2018 HISTORY: cough COMPARISON: 08/05/2016 TECHNIQUE: Chest PA and lateral FINDINGS: LUNGS: No active pulmonary disease. PLEURA: No significant pleural effusion identified. No pneumothorax apparent. CARDIOVASCULAR: No aortic atherosclerotic calcification present. Normal cardiac size. No pulmonary vascular congestion. OSSEOUS STRUCTURES: No significant abnormalities. VISUALIZED UPPER ABDOMEN: Normal. OTHER FINDINGS: None. IMPRESSION: No active disease.
== END 2018-05-06 13:56 | disposition home or self-care (01) ==
LOC: ED 10:20
DX: J06.9 Acute upper respiratory infection, unspecified (principal)